=== PATIENT | female | born 1940 | race African-American/Black ===

== ENCOUNTER 2019-06-29 05:52 | Emergency (ER) | payer MEDICARE ==
[2019-06-29 06:05] VITALS: TEMP 98.5
[2019-06-29] MEDS ORDERED: ORPHENADRINE 30 MG/ML 2 ML VIAL IM STA (06:39)
[2019-06-29] MEDS ORDERED: MORPHINE SULFATE 4 MG/ML SYRINGE IM STA (06:39)
--- NOTE | 2019-06-29 06:57 | ED ---
Lower Extremity Injury HPI - General Chief Complaint: Extremity Injury, Lower Stated Complaint: Left leg pain Time Seen by Provider: 06/29/19 06:06 Source: patient, EMS, RN notes reviewed, old records reviewed Mode of arrival: EMS Limitations: no limitations - History of Present Illness Initial Comments: Patient states 78-year-old female. She presents emergency department today for evaluation for shooting pain radiating from her left lower back, across her buttocks and down her lateral left thigh. Patient reports that symptoms started last night before she went to bed. She reports that she woke up the middle the night felt that she couldn't turn over in bed. She states is due to the pain. She denies any specific fall or trauma to her back. She reports that she does not go to the doctor often, and has no known history of back problems. Patient states that she has had no saddle anesthesias, urinary symptoms including dysuria or hematuria. She denies any changes in bowel habits. - Related Data Previous Rx's Medication Instructions Recorded Dexamethasone 0.75 mg PO DAILY #12 tab 06/29/19 Ibuprofen 600 mg PO TID #12 tablet 06/29/19 Orphenadrine [Norflex] 100 mg PO Q12H #12 tablet.er 06/29/19 Allergies Allergy/AdvReac Type Severity Reaction Status Date / Time Penicillins Allergy Rash/Hives Verified 06/29/19 06:06 Review of Systems ROS Statement: Those systems with pertinent positive or pertinent negative responses have been documented in the HPI. ROS Other: All systems not noted in ROS Statement are negative. 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 Patient is resting in bed. She appears in no acute distress at this time. Limitations: no limitations General appearance: alert, in no apparent distress Head exam: Present: atraumatic, normocephalic, normal inspection Eye exam: Present: normal appearance, PERRL, EOMI. Absent: scleral icterus, conjunctival injection, periorbital swelling ENT exam: Present: normal exam, mucous membranes moist Neck exam: Present: normal inspection. Absent: tenderness, meningismus, lymphadenopathy Respiratory exam: Present: normal lung sounds bilaterally. Absent: respiratory distress, wheezes, rales, rhonchi, stridor Cardiovascular Exam: Present: regular rate, normal rhythm, normal heart sounds. Absent: systolic murmur, diastolic murmur, rubs, gallop, clicks GI/Abdominal exam: Present: soft, normal bowel sounds. Absent: distended, tenderness, guarding, rebound, rigid Extremities exam: Present: normal inspection, full ROM, normal capillary refill. Absent: tenderness, pedal edema, joint swelling, calf tenderness Left Lower Leg exam: Present: normal inspection, full ROM Ankle exam: Present: normal inspection, full ROM Foot/Toe exam: Present: normal inspection, full ROM Back exam: Present: normal inspection Expanded Back exam: Sciatic Notch Tenderness: Left, Positive Straight Leg Raise: Left, Negative Straight Leg Raising: Right 1 - tenderness, muscle spasm Neurological exam: Present: alert, oriented X3, CN II-XII intact Psychiatric exam: Present: normal affect, normal mood Skin exam: Present: warm, dry, intact, normal color. Absent: rash Course Vital Signs 06/29/19 06:00 Temperature 98.5 F Pulse Rate 70 Respiratory 18 Rate Blood Pressure 175/98 O2 Sat by Pulse 97 Oximetry Medical Decision Making - Medical Decision Making Patient's a 70-year-old female presents emergency room today for evaluation for chief complaint of lower back pain, spasms, with pain radiates down the lateral aspect of her left leg. I discussed the patient's symptoms are consistent with sciatica. Worse with certain movements. She denies any red plaque symptoms or signs seizures. Due to advanced age did complete x-rays. There is evidence of L4-L5 and L5-S1 anterolisthesis. It is edematous disease throughout the spine. Patient is given IM pain medication. Patient was reevaluated and resting comfortably bed. I discussed the Patient can be treated with anti-inflammatory medication, steroid short course of pain medication for the acute flareup of saying her pain. Discussed the importance of stretching. Discussion may benefit from following up with orthopedic or physical therapy. All questions were answered. - Radiology Data Radiology results: report reviewed Multilevel degenerative facet arthropathy grade 1 anterolisthesis L4-L5 and L5- S1. Disposition Clinical Impression: Sciatica, left side, DDD (degenerative disc disease), lumbar Disposition: HOME SELF-CARE Condition: Good Instructions (If sedation given, give patient instructions): Sciatica (ED), Lumbar Radiculopathy (ED) Additional Instructions: She denies to alternate between heat and ice to the lower back. Patient should do stretching of lower back. Recommended taking anti-inflammatory medication and uses reports the pain meds in the meantime. Follow-up with primary care physician. Prescriptions: Dexamethasone 0.75 mg PO DAILY #12 tab Ibuprofen 600 mg PO TID #12 tablet Orphenadrine [Norflex] 100 mg PO Q12H #12 tablet.er Is patient prescribed a controlled substance at d/c from ED?: No Referrals: Loly Orona MD [Primary Care Provider] - 1-2 days Mika Finn DO [Doctor of Osteopathic Medicine] - 1-2 days Time of Disposition: 07:23
--- NOTE | 2019-06-29 07:09 | XR ---
EXAM TYPE: LUMBAR SPINE X RAY SERIES COMPARISON: NONE HISTORY: Pain TECHNIQUE: 3 views are submitted. FINDINGS: Alignment is anatomic. The pedicles are intact. The transverse processes are intact. Diffuse osteo penia is seen. Grade 1 anterolisthesis L4 on L5 with multilevel degenerative disc disease and facet a rthropathy. Vascular calcifications noted. There also is a grade 1 anterolisthesis of L5 on S1. Posts urgical changes seen in the pelvis. IMPRESSION: 1. Multilevel degenerative disc disease and facet arthropathy with grade 1 anterolisthesis L4 on L5 a nd L5 on S1.
[2019-06-29] MEDS ORDERED: ACET/COD 300 MG/30 MG STARTER PACK 6 TAB BTL PO STA (07:25)
[2019-06-29 07:37] VITALS: BP 158/90; PULSE 81; RESP 16
== END 2019-06-29 08:00 | disposition home or self-care (01) ==
LOC: EC 05:52
DX: M51.16 Intervertebral disc disorders with radiculopathy, lumbar region (principal); M43.16 Spondylolisthesis, lumbar region; E11.9 Type 2 diabetes mellitus without complications; I10 Essential (primary) hypertension; Z88.0 Allergy status to penicillin
CPT/HCPCS: 72100; 99284; 96372 ×2; J2270; J2360